=== PATIENT | female | born 1940 | race Caucasian/White ===

== ENCOUNTER → 2017-08-15 | Outpatient (CLI) | payer MEDICARE ==
[~2017-08-15] MED LIST: CORT20TA PO; FLUD.1 PO; SYNT25TA PO; ZOFR4TAB3 SL
[2017-08-15 10:47] LABS: CREATININE RANDOM URINE 65 MG/DL (27-300)
[2017-08-15 10:57] LABS: MICRO ALBUMIN RANDOM URINE RAW LESS THAN 5.0 MG/L (0.0-30.0)
[2017-08-15 11:36] LABS: HDL CHOLESTEROL 73.8 MG/DL (40.0-60.0); LDL CHOLESTEROL 125 MG/DL (0-99)
[2017-08-15 16:05] LABS: HEMOGLOBIN A1a 1.1 %; HEMOGLOBIN Ao 82.9 %; HEMOGLOBIN P3 4.3 %
== END ==
LOC: PLAB 07:09
PROVIDERS: ATTEND Internal Medicine
DX: E27.40 Unspecified adrenocortical insufficiency (principal); E11.9 Type 2 diabetes mellitus without complications
CPT/HCPCS: 36415; 80061; 82024; 82043; 82530; 82533; 83036